=== PATIENT | male | born 1995 | race Two or more races ===

== ENCOUNTER 2024-06-20 18:53 | Emergency (ER) | payer OTHER ==
[~2024-06-20] VITALS: Ht 162.6 cm; Wt 54.4 kg
[2024-06-20] MEDS ORDERED: DEXAMETHASONE SODIUM PHOSPHATE 4 MG/ML VIAL ONE (19:20)
[2024-06-20] MEDS ORDERED: DEXAMETHASONE SODIUM PHOSPHATE 4 MG/ML VIAL IM ONE (19:30)
[2024-06-20 19:47] LABS: HEMATOCRIT 44.3 % (39.0-48.0); HEMOGLOBIN 15.4 g/dL (13-16.00); MEAN CORPUSCULAR HEMOGLOBIN 30.6 pg (27.00-32.0); MEAN CORPUSCULAR HGB CONC 34.8 g/dl (32.0-36.0); PLATELET COUNT 203 K/uL (150-450); RED BLOOD COUNT 5.03 M/uL (4.00-6.00); RED CELL DISTRIBUTION WIDTH 12.9 % (11.5-14.5)
[2024-06-20] MEDS ORDERED: TUSNEL LIQUID178 ML PO (20:42)
[2024-06-20] MEDS ORDERED: ZITHROMAX500 MG PO (20:42)
[2024-06-20] MEDS ORDERED: AZITHROMYCIN 500 MG TABLET PO ONE ×2 (20:45→20:54)
== END 2024-06-20 20:56 | disposition home or self-care (01) ==
LOC: ER 18:55
PROVIDERS: General Practice
DX: J06.9 Acute upper respiratory infection, unspecified (principal); Z20.822 Contact with and (suspected) exposure to COVID-19

== ENCOUNTER 2024-09-19 18:32 | Emergency (ER) | payer OTHER ==
[~2024-09-19] VITALS: Ht 162.6 cm; Wt 59.0 kg
[~2024-09-19 18:32] MED LIST: TUSNEL LIQUID178 ML PO; ZITHROMAX500 MG PO
[2024-09-19] MEDS ORDERED: GUAIFENESIN/DEXTROMETHORPHAN 100MG/10ML BLIST.PACK PO ONE ×2 (22:15→22:27)
[2024-09-19] MEDS ORDERED: IPRATROPIUM/ALBUTEROL SULFATE 3 ML AMPUL.NEB IH SCH (22:15)
[2024-09-19 22:19] LABS: HEMOGLOBIN 15.7 g/dL (13-16.00); MEAN CELL VOLUME 88.1 fL (80.0-100.00); MEAN CORPUSCULAR HEMOGLOBIN 30.1 pg (27.00-32.0); MEAN CORPUSCULAR HGB CONC 34.2 g/dl (32.0-36.0); PLATELET COUNT 245 K/uL (150-450); RED BLOOD COUNT 5.22 M/uL (4.00-6.00); RED CELL DISTRIBUTION WIDTH 12.8 % (11.5-14.5)
[2024-09-19] MEDS ORDERED: IPRATROPIUM/ALBUTEROL SULFATE 3 ML AMPUL.NEB IH ONE (22:24)
[2024-09-19] MEDS ORDERED: GILTUSS COUGH-118 M1 PO (23:53)
[2024-09-19] MEDS ORDERED: ZITHROMAX TRI-500 MG PO (23:53)
[2024-09-19] MEDS ORDERED: ACETAMINOPHEN500 M1 PO (23:53)
[2024-09-19] MEDS ORDERED: ALBUTEROL2.5 MG/3 M IH (23:58)
== END 2024-09-20 00:02 | disposition home or self-care (01) ==
LOC: ER 18:33
PROVIDERS: Preventive Medicine Public Health & General Preventive Medicine
DX: J06.9 Acute upper respiratory infection, unspecified (principal); Z20.822 Contact with and (suspected) exposure to COVID-19; Z87.09 Personal history of other diseases of the respiratory system